=== PATIENT | male | born 1970 | race Caucasian/White ===

== ENCOUNTER 2020-12-03 13:16 | Emergency (ER) | payer SELFPAY ==
[2020-12-03 13:30] VITALS: BP 108/72
[2020-12-03] MEDS ORDERED: IBUPROFEN 600 MG TAB PO ONE (13:32)
--- NOTE | 2020-12-03 14:34 | Emergency Department Report ---
- General Chief Complaint: Upper Respiratory Infection Stated Complaint: HEADACHE, BODY ACHE, FLU SYMPTOMS Time Seen by Provider: 12/03/20 14:18 Source: patient Mode of arrival: Ambulatory Limitations: No Limitations - History of Present Illness Initial Comments: Patient is a 50-year-old male presents emergency room complaints of URI symptoms that began 8 days ago. He has associated chills, fever, cough with mucus production. He denies any vomiting, diarrhea, shortness of breath, chest pain, abdominal pain. He states he has had a sick contact. He states initially his had it and then gave it to his child and then he got sick. He denies any past medical history. No allergies to medications. He is a non-smoker and nondrinker. He reports also for the last 2 months to the glans penis he has had itching and a white discharge surrounding the glans. He denies any dysuria. He states he attempted to use an ointment [id number] which helps some but it just comes back. He denies any pain or swelling in the testicles or abdominal pain. - Related Data Previous Rx's Medication Instructions Recorded Last Taken Type Clotrimazole 1% [Lotrimin 1%] 1 applic TP BID #1 tube 12/03/20 Unknown Rx Fluconazole [Diflucan TAB] 150 mg PO ONCE 1 Days #3 tablet 12/03/20 Unknown Rx metFORMIN [Glucophage] 500 mg PO DAILY #30 tablet 12/03/20 Unknown Rx Allergies Allergy/AdvReac Type Severity Reaction Status Date / Time No Known Allergies Allergy Unverified 12/03/20 13:26 ED Review of Systems ROS: Stated complaint: HEADACHE, BODY ACHE, FLU SYMPTOMS Other details as noted in HPI Comment: All other systems reviewed and negative ED Past Medical Hx - Past Medical History Previous Medical History?: No - Surgical History Past Surgical History?: No - Medications Home Medications: Home Medications Medication Instructions Recorded Confirmed Last Taken Type Clotrimazole 1% [Lotrimin 1%] 1 applic TP BID #1 tube 12/03/20 Unknown Rx Fluconazole [Diflucan TAB] 150 mg PO ONCE 1 Days #3 tablet 12/03/20 Unknown Rx metFORMIN [Glucophage] 500 mg PO DAILY #30 tablet 12/03/20 Unknown Rx ED Physical Exam - General Limitations: No Limitations General appearance: alert, in no apparent distress - Head Head exam: Present: atraumatic, normocephalic - Eye Eye exam: Present: normal appearance - ENT ENT exam: Present: mucous membranes moist - Respiratory Respiratory exam: Present: normal lung sounds bilaterally. Absent: respiratory distress, wheezes, rales, rhonchi, stridor, chest wall tenderness, accessory m uscle use, decreased breath sounds, prolonged expiratory - Cardiovascular Cardiovascular Exam: Present: regular rate, normal rhythm, normal heart sounds. Absent: systolic murmur, diastolic murmur, rubs, gallop - exam: Present: other (barbering instructor: jaylyn, tech, pt is uncircumsized, there is a thick white discharge surrounding the glans penis with irritation/erythema, no edema of the glans, no ttp of the testicles bilaterally, no scrotal edema) - Neurological Exam Neurological exam: Present: alert, oriented X3 - Psychiatric Psychiatric exam: Present: normal affect, normal mood - Skin Skin exam: Present: warm, dry, intact ED Course Vital Signs 12/03/20 12/03/20 13:28 17:16 Temperature 101.9 F H 98.9 F Pulse Rate 109 H 90 Respiratory 16 Rate Blood Pressure 108/72 [Right] O2 Sat by Pulse 97 98 Oximetry ED Medical Decision Making - Lab Data Result diagrams: 12/03/20 15:25 12/03/20 15:25 Lab Results 12/03/20 12/03/20 12/03/20 Range/Units 15:25 15:25 15:25 WBC 5.6 (4.5-11.0) K/mm3 RBC 5.10 H (3.65-5.03) M/mm3 Hgb 15.8 H (11.8-15.2) gm/dl Hct 45.6 (35.5-45.6) % MCV 89 (84-94) fl MCH 31 (28-32) pg MCHC 35 H (32-34) % RDW 12.5 L (13.2-15.2) % Plt Count 150 (140-440) K/mm3 Lymph % (Auto) 15.8 (13.4-35.0) % [place] % (Auto) 10.4 H (0.0-7.3) % Eos % (Auto) 0.0 (0.0-4.3) % Baso % (Auto) 0.5 (0.0-1.8) % Lymph # (Auto) 0.9 L (1.2-5.4) K/mm3 [place] # (Auto) 0.6 (0.0-0.8) K/mm3 Eos # (Auto) 0.0 (0.0-0.4) K/mm3 Baso # (Auto) 0.0 (0.0-0.1) K/mm3 Seg Neutrophils % 73.3 H (40.0-70.0) % Seg Neutrophils # 4.1 (1.8-7.7) K/mm3 VBG pH 7.428 H (7.320-7.420) Sodium 134 L (137-145) mmol/L Potassium 4.1 (3.6-5.0) mmol/L Chloride 97.2 L (98-107) mmol/L Carbon Dioxide 25 (22-30) mmol/L Anion Gap 16 mmol/L BUN 9 (9-20) mg/dL Creatinine 0.8 (0.8-1.3) mg/dL Estimated GFR > 60 ml/min BUN/Creatinine Ratio 11 % Glucose 224 H (75-100) mg/dL Calcium 8.6 (8.4-10.2) mg/dL Total Bilirubin 0.50 (0.1-1.2) mg/dL AST 32 (5-40) units/L ALT 27 (7-56) units/L Alkaline Phosphatase 70 (35-129) units/L Total Protein 7.3 (6.3-8.2) g/dL Albumin 4.0 (3.9-5) g/dL Albumin/Globulin Ratio 1.2 % Urine Color (Yellow) Urine Turbidity (Clear) Urine pH (5.0-7.0) Ur Specific [place] (1.003-1.030) Urine Protein (Negative) mg/dL Urine Glucose (UA) (Negative) mg/dL Urine Ketones (Negative) mg/dL Urine Blood (Negative) Urine Nitrite (Negative) Urine Bilirubin (Negative) Urine Urobilinogen (<2.0) mg/dL Ur Leukocyte Esterase (Negative) Urine WBC (Auto) (0.0-6.0) /HPF Urine RBC (Auto) (0.0-6.0) /HPF U Epithel Cells (Auto) (0-13.0) /HPF Urine Mucus /HPF 12/03/20 Range/Units Unknown WBC (4.5-11.0) K/mm3 RBC (3.65-5.03) M/mm3 Hgb (11.8-15.2) gm/dl Hct (35.5-45.6) % MCV (84-94) fl MCH (28-32) pg MCHC (32-34) % RDW (13.2-15.2) % Plt Count (140-440) K/mm3 Lymph % (Auto) (13.4-35.0) % [place] % (Auto) (0.0-7.3) % Eos % (Auto) (0.0-4.3) % Baso % (Auto) (0.0-1.8) % Lymph # (Auto) (1.2-5.4) K/mm3 [place] # (Auto) (0.0-0.8) K/mm3 Eos # (Auto) (0.0-0.4) K/mm3 Baso # (Auto) (0.0-0.1) K/mm3 Seg Neutrophils % (40.0-70.0) % Seg Neutrophils # (1.8-7.7) K/mm3 VBG pH (7.320-7.420) Sodium (137-145) mmol/L Potassium (3.6-5.0) mmol/L Chloride (98-107) mmol/L Carbon Dioxide (22-30) mmol/L Anion Gap mmol/L BUN (9-20) mg/dL Creatinine (0.8-1.3) mg/dL Estimated GFR ml/min BUN/Creatinine Ratio % Glucose (75-100) mg/dL Calcium (8.4-10.2) mg/dL Total Bilirubin (0.1-1.2) mg/dL AST (5-40) units/L ALT (7-56) units/L Alkaline Phosphatase (35-129) units/L Total Protein (6.3-8.2) g/dL Albumin (3.9-5) g/dL Albumin/Globulin Ratio % Urine Color Yellow (Yellow) Urine Turbidity Clear (Clear) Urine pH 7.0 (5.0-7.0) Ur Specific [place] 1.021 (1.003-1.030) Urine Protein 30 mg/dl (Negative) mg/dL Urine Glucose (UA) >=500 (Negative) mg/dL Urine Ketones 20 (Negative) mg/dL Urine Blood Neg (Negative) Urine Nitrite Neg (Negative) Urine Bilirubin Neg (Negative) Urine Urobilinogen 2.0 (<2.0) mg/dL Ur Leukocyte Esterase Neg (Negative) Urine WBC (Auto) 3.0 (0.0-6.0) /HPF Urine RBC (Auto) 3.0 (0.0-6.0) /HPF U Epithel Cells (Auto) < 1.0 (0-13.0) /HPF Urine Mucus Few /HPF Vital Signs 12/03/20 12/03/20 13:28 17:16 Temperature 101.9 F H 98.9 F Pulse Rate 109 H 90 Respiratory 16 Rate Blood Pressure 108/72 [Right] O2 Sat by Pulse 97 98 Oximetry - Radiology Data Radiology results: report reviewed Ordering Physician: ERIK PRICE Date of Service: 12/03/20 Procedure(s): XR chest routine 2V Accession Number(s): [id number] cc: ERIK PRICE Fluoro Time In Minutes: CHEST 2 VIEWS INDICATION: cough, fever. COMPARISON: None. FINDINGS: Support devices: None. Heart: Within normal limits. Lungs/Pleura: No acute air space or interstitial disease. No significant pleural effusion. IMPRESSION: No acute findings. Signer Name: Henry Tariq MD Signed: 12/03/2020 2:58 PM Workstation Name: [id number] Transcribed By: ES Dictated By: Henry Tariq MD Electronically Authenticated By: Henry Tariq MD Signed Date/Time: 12/03/20 145 DD/ 56 TD/TT: - Medical Decision Making Patient is a 50-year-old male presents emergency room complaints of URI symptoms that began 8 days ago. He has associated chills, fever, cough with mucus production. He denies any vomiting, diarrhea, shortness of breath, chest pain, abdominal pain. He states he has had a sick contact. He states initially his had it and then gave it to his child and then he got sick. He denies any past medical history. No allergies to medications. He is a non-smoker and nondrinker. He reports also for the last 2 months to the glans penis he has had itching and a white discharge surrounding the glans. He denies any dysuria. He states he attempted to use an ointment [id number] which helps some but it just comes back. He denies any pain or swelling in the testicles or abdominal pain. Initial vitals with fever and tachycardia which improved upon repeat after Tylenol administration, no hypoxia. Breath sounds are clear bilaterally, no wheezing, no rales, no rhonchi. On exam: barbering instructor: otoniel de la o, pt is uncircumsized, there is a thick white discharge surrounding the glans penis with irritation/erythema, no edema of the glans, no ttp of the testicles bilaterally, no scrotal edema. Examination appears consistent with balanitis. CXR: IMPRESSION: No acute findings. UA shows no signs of UTI, but there is greater than 500 glucose in the urine, patient denies any previous hist ory of diabetes. Labs show mild dehydration, encourage increasing oral intake. Blood glucose is 224 on lab work. Patient will be started on low-dose Metformin daily and advised to follow-up with a primary care doctor and discuss lifestyle modifications with patient. Patient given prescription for fluconazole and clotrimazole for balanitis. URI symptoms likely viral in origin, patient is presenting with the symptoms during COVID-19 pandemic, discussed COVID-19 with patient, discuss strict return precautions, discussed outpatient testing, discussed self quarantine. Advised patient Please use medication as prescribed. Please follow-up with your primary care doctor. Please increase your fluid intake over the next several days. May take Tylenol as needed for fever or body aches. May take yajd-kbz-iferfev cold symptom relief medication such as Mucinex or TheraFlu. Follow-up with a primary care doctor for reexamination. Return to emergency room immediately for any new or worsening symptoms including but not limited to difficulty breathing, shortness of breath, severe chest pain, unable to tolerate by mouth intake, etc. Please self quarantine for 10 days from the onset of your symptoms. Please do not go out in public. If you are around others at home please wear a mask. If you need to cough or sneeze please do so in a napkin and immediately throw it away and immediately wash your hands. Wash your hands frequently. Wipe everything down. Recommend for you to get COVID-19 testing, may have this done at primary care doctor, health department, [facility], etc Critical care attestation.: If time is entered above; I have spent that time in minutes in the direct care of this critically ill patient, excluding procedure time. ED Disposition Clinical Impression: Viral URI, Balanitis, Hyperglycemia Disposition: DC- TO HOME OR SELFCARE Is pt being admited?: No Does the pt Need Aspirin: No Condition: Stable Instructions: Hyperglycemia, [id number], Balanitis, Viral Respiratory Infection Additional Instructions: Please use medication as prescribed. Please follow-up with your primary care doctor. Please increase your fluid intake over the next several days. May take Tylenol as needed for fever or body aches. May take jeff-bcn-aeygcwd cold symptom relief medication such as Mucinex or TheraFlu. Follow-up with a primary care doctor for reexamination. Return to emergency room immediately for any new or worsening symptoms including but not limited to difficulty breathing, shortness of breath, severe chest pain, unable to tolerate by mouth intake, etc. Please self quarantine for 10 days from the onset of your symptoms. Please do not go out in public. If you are around others at home please wear a mask. If you need to cough or sneeze please do so in a napkin and immediately throw it away and immediately wash your hands. Wash your hands frequently. Wipe everything down. Recommend for you to get COVID-19 testing, may have this done at primary care doctor, health department, [facility], etc Prescriptions: Fluconazole [Diflucan TAB] 150 mg PO ONCE 1 Days #3 tablet metFORMIN [Glucophage] 500 mg PO DAILY #30 tablet Clotrimazole 1% [Lotrimin 1%] 1 applic TP BID #1 tube Referrals: PRIMARY MD JULIO [Primary Care Provider] - 2-3 Days VIRI OTERO MD [Staff Physician] - 2-3 Days [facility] [Provider Group] - 2-3 Days Time of Disposition: 17:07 Print Language: AMERICAN
--- NOTE | 2020-12-03 15:03 | XRay Report ---
CHEST 2 VIEWS INDICATION: cough, fever. COMPARISON: None. FINDINGS: Support devices: None. Heart: Within normal limits. Lungs/Pleura: No acute air space or interstitial disease. No significant pleural effusion. IMPRESSION: No acute findings. Signer Name: Henry Tariq MD Signed: 12/03/2020 2:58 PM Workstation Name: [id number]
[2020-12-03 15:19] LABS: Bilirubin,Urine NEG (Negative); Blood,Urine NEG (Negative); Color,Urine Yellow (Yellow); Mucus,Urine FEW /HPF
[2020-12-03 16:03] LABS: Basophils % (Auto) 0.5 % (0.0-1.8); Hematocrit 45.6 % (35.5-45.6); Hemoglobin 15.8 gm/dl (11.8-15.2); Lymphocytes # (Auto) 0.9 K/mm3 (1.2-5.4); Lymphocytes % (Auto) 15.8 % (13.4-35.0); Mean Corpuscular HGB Conc 35 % (32-34); Mean Corpuscular Volume 89 fl (84-94); Monocytes # (Auto) 0.6 K/mm3 (0.0-0.8); Monocytes % (Auto) 10.4 % (0.0-7.3); Platelet Count 150 K/mm3 (140-440); Red Cell Distribution Width 12.5 % (13.2-15.2)
[2020-12-03 16:24] LABS: Alanine Aminotransferase 27 units/L (7-56); BUN/Creatinine Ratio 11; Blood Urea Nitrogen 9 mg/dL (9-20); Calcium 8.6 mg/dL (8.4-10.2); Hemolysis Index 31
== END 2020-12-03 17:47 | disposition home or self-care (01) ==
LOC: ED 13:16
DX: J06.9 Acute upper respiratory infection, unspecified (principal); N48.1 Balanitis; R73.9 Hyperglycemia, unspecified; Z79.899 Other long term (current) drug therapy
CPT/HCPCS: 36415; 71046; 80053; 81001; 82805; 85025